=== PATIENT | female | born 1995 | race Caucasian/White ===

== ENCOUNTER 2018-04-29 00:23 | Emergency (ER) | payer BC, SELFPAY ==
[2018-04-29 00:23] VITALS: BP 125/73; PULSE 105; RESP 22; TEMP 37.2; O2SAT 95; BMI 22.6
--- NOTE | 2018-04-29 00:36 | RAD_ITS ---
STUDY: X-RAY CHEST REASON FOR EXAM: Female, 23 years old. Cough TECHNIQUE: PA and lateral views of the chest. COMPARISON: None. FINDINGS: The lungs are clear and expanded. There is no demonstrated pleural abnormality. Normal size heart. Normal mediastinum and gill. Normal visualized pulmonary arteries. Normal visualized aortic arch and descending thoracic aorta. Normal visualized thoracic spine. Normal visualized ribs, clavicles, and shoulders. There is no demonstrated abnormality of the visualized soft tissue structures of the upper abdomen. RAD/Chest PA and Lateral IMPRESSION: Normal x-ray examination of the chest. Electronically Signed: Garima Huang MD at 1:08 EST , Service support ,
--- NOTE | 2018-04-29 00:36 | ED.VISSUMM ---
- ER Visit Summary Date of Service: 04/29/18 Chief Complaint: Shortness of breath History of Present Illness: The patient is a 23 F presents to the emergency department shortness of breath. Patient was in her normal state of health. She states she is outdoors today. She ran a mile. She states she had a little bit of chest tightness and a mild cough after that. States she went to the gym and worked out. When she got home, she notes she was wheezing. She denies any history of prior asthma. She does not smoke. She denies any new lotions, soaps, shampoos, or other exposures. She states that shortness of breath was getting worse so she presented here tonight. She denies any fevers or chills. She denies any chest pain. She has no history of orthopnea. She takes no daily medications. Physical Examination: Vital signs reviewed General: Well-nourished, well-developed Head: Normocephalic, atraumatic Eyes: Pupils equal and reactive, extraocular muscles intact Neck, supple, no lymphadenopathy Heart: Regular rate and rhythm Respiratory: No distress, wheezing in all lung [place] Abdomen: Soft, nontender, nondistended, no peritoneal signs Back: Nontender Extremities: Nontender, no edema, no cords Skin: Normal color no rash Neuro: Alert and oriented, no focal or lateralizing deficits Test Results: [] Emergency Department Course and Treatment: The patient presents with wheezing in all [place]. She was given oral prednisone and nebulized breathing treatments. On reevaluation, she had marked improvement of her aeration. She had no tachypnea or hypoxia. Patient denies any history of prior wheezing. I did obtain a chest x-ray which was unremarkable. She has had a scant cough, but no productive sputum. She had no other infectious symptoms. I am unsure of the acute etiology of her bronchospasm, but I am going to treat her with an inhaler and prednisone. She is comfortable with this plan of care. Again, she is very well-appearing and I do feel that she is safe for outpatient therapy. Treatment Plan: [] Disposition: Discharge Impression: 1. Bronchospasm This note was generated with [employer] dictation software. It may contain incorrect words, spelling, and punctuation that were not noted in review of the chart prior to signing ED Disposition - Plan for ED Patient: Instructions: ED Bronchitis Asthmatic Prescriptions: Albuterol Inhaler [Ventolin Hfa] 2 puff INHALATION Q4H PRN PRN #1 inhaler PRN Reason: Wheezing Prednisone [Deltasone] 40 mg PO DAILY #10 tab Referrals: Samuel Kelly MD [Primary Care Provider] -
[2018-04-29 00:40] VITALS: PULSE 108; RESP 20
[2018-04-29] MEDS: Albuterol 2.5 MG/3 ML VIAL.NEB. INHALATION (00:42)
[2018-04-29] MEDS: Ipratropium/Albuterol Sulfate 3 ML AMPUL.NEB INHALATION (00:42)
[2018-04-29 00:49] VITALS: PULSE 120; RESP 18
[2018-04-29] MEDS: predniSONE 20 MG Tablet 60 MG PO (01:12)
[2018-04-29 01:26] VITALS: BP 112/78; PULSE 79; RESP 16; O2SAT 98
== END 2018-04-29 01:27 | disposition home or self-care (01) ==
PROVIDERS: Emergency Provider Emergency Medicine
DX: J98.01 Acute bronchospasm (principal)
CPT/HCPCS: 71046; 94640; 99283

== ENCOUNTER → 2024-12-10 | Outpatient (CLI) | payer OTHER, SELFPAY ==
[2024-12-10 10:30] LABS: Hematocrit 38.5 % (37-47); Hemoglobin 13.3 g/dL (12.0-15.0); Immature Granulocytes Count 0.030 X10^3/uL (0.0-0.0); Mean Corp Hgb Conc 34.5 g/dL (32-36); Mean Corpuscular Volume 88.9 fL (81-99); Mean Platelet Vol. 10.7 fl (6.2-12.0); NRBC Flagged by Analyzer 0 % (0-5); Platelet Count 282 K/mm3 (150-450); RBC Distribution Width CV 11.7 % (11.6-14.6); RBC Distribution Width SD 37.3 fl (35.1-43.9); Red Blood Count 4.33 M/mm3 (4.2-5.4); White Blood Count 6.9 K/mm3 (4.4-11.0)
[2024-12-10 11:31] LABS: AST(SGOT) 22 U/L (<=31); Alanine Aminotransfer ALT/SGPT 16 U/L (<=34); Albumin, Serum 4.1 g/dL (3.5-5.0); Alkaline Phosphatase 61 U/L (35-104); Anion Gap 10 (5-15); BUN 16 mg/dL (4-19); BUN/Creat Ratio 21.2 RATIO (10-20); Calcium,Total 8.7 mg/dL (7.6-11.0); Carbon Dioxide 21.3 mmol/L (21.0-32.0); Chloride 107 mmol/L (98-108); Globulin 2.7 g/dL (2.2-4.2); Glucose 95 mg/dL (70-99); Potassium 4.0 mmol/L (3.3-5.1)
== END | disposition home or self-care (01) ==
LOC: MTLAB 08:21
PROVIDERS: PCP Internal Medicine; Referring Provider Internal Medicine; Visit Provider Internal Medicine
DX: Z00.00 Encounter for general adult medical examination without abnormal findings (principal); G25.81 Restless legs syndrome
CPT/HCPCS: 36415; 80053; 85025